=== PATIENT | male | born 1985 | race Caucasian/White ===

== ENCOUNTER 2018-05-28 08:06 | Emergency (ER) | payer MEDICAID ==
[~2018-05-28] VITALS: Ht 177.8 cm; Wt 82.0 kg
[2018-05-28] MEDS ORDERED: SODIUM CHLORIDE 0.9% 1,000 ML IV ONE (09:30)
[2018-05-28 10:00] LABS: BASOPHILS % 0.5 % (0.0-2.0); EOSINOPHILS % 0.1 % (0.0-5.0); HEMATOCRIT. 40.7 % (42.0-52.0); LYMPHOCYTES % 22.4 % (20.0-50.0); MEAN CORPUSCULAR HEMOGLOBIN 30.4 pg (28.0-32.0); MEAN PLATELET VOLUME 7.1 fl (7.4-10.4); MONOCYTES % 7.6 % (2.0-8.0); NEUTROPHILS % 69.4 % (40.0-76.0); PLATELET 326 x1000/uL (130-400); RED BLOOD CELL COUNT 4.62 mill/uL (4.7-6.1); RED CELL DISTRIBUTION WIDTH 14.6 % (11.6-14.6)
[2018-05-28 10:06] LABS: CHLORIDE 102 mEq/L (98-107)
[2018-05-28 10:11] LABS: *BENZODIAZEPINES SCREEN URINE NEGATIVE (NEGATIVE); *COCAINE SCREEN URINE NEGATIVE (NEGATIVE)
[2018-05-28 10:12] LABS: *AMPHETAMINES SCREEN URINE NEGATIVE (NEGATIVE); *BARBITURATES SCREEN URINE NEGATIVE (NEGATIVE); CANNABINOID URINE SCREEN NEGATIVE (NEGATIVE); METHADONE URINE SCREEN NEGATIVE (NEGATIVE); OPIATES URINE SCREEN NEGATIVE (NEGATIVE); PHENCYCLIDINE URINE SCREEN NEGATIVE (NEGATIVE)
[2018-05-28 10:13] LABS: ETHANOL BLOOD < 10 mg/dL
[2018-05-28 10:21] LABS: CLARITY URINE CLEAR (CLEAR); COLOR URINE YELLOW (YELLOW); KETONES URINE NEGATIVE (NEGATIVE); LEUKOCYTE ESTERASE URINE NEGATIVE (NEGATIVE); NITRITE URINE NEGATIVE (NEGATIVE); OCCULT BLOOD URINE NEGATIVE (NEGATIVE); PH URINE 6.5 (4.5-8.0); PROTEIN URINE NEGATIVE (NEGATIVE); SPECIFIC GRAVITY URINE 1.002 (1.005-1.030); UROBILINOGEN URINE 0.2 E.U./dL (0.2-1.0)
[2018-05-28 13:15] VITALS: BP 130/78
== END 2018-05-28 13:36 | disposition home or self-care (01) ==
LOC: ER 08:06
DX: R00.2 Palpitations (principal); F20.9 Schizophrenia, unspecified
CPT/HCPCS: 36415; 71045; 80053; 80305; 81003; 84484; 85025; 93005; 99285; G0482; J7030; Z7610

== ENCOUNTER 2022-07-18 18:59 | Inpatient (IN) | payer OTHER ==
[~2022-07-18] VITALS: Ht 185.4 cm; Wt 91.6 kg
[~2022-07-18 18:59] MED LIST: METF-415 PO; ONDA4TAB5 PO
[2022-07-19] MEDS ORDERED: HYDROXYZINE 25MG TABLET PO ONE (03:45)
[2022-07-19] MEDS ORDERED: HYDROXYZINE 25MG TABLET PO NR (04:00)
[2022-07-19] MEDS ORDERED: SODIUM CHLORIDE 0.9% 1,000 ML IV ONE (06:45)
[2022-07-19 07:03] LABS: *AMPHETAMINES SCREEN URINE NEGATIVE (NEGATIVE); *BARBITURATES SCREEN URINE NEGATIVE (NEGATIVE); *BENZODIAZEPINES SCREEN URINE NEGATIVE (NEGATIVE); *COCAINE SCREEN URINE NEGATIVE (NEGATIVE); CANNABINOID URINE SCREEN NEGATIVE (NEGATIVE); METHADONE URINE SCREEN NEGATIVE (NEGATIVE); OPIATES URINE SCREEN NEGATIVE (NEGATIVE); PHENCYCLIDINE URINE SCREEN NEGATIVE (NEGATIVE)
[2022-07-19 08:17] LABS: BASOPHILS % 1.2 % (0.0-2.0); EOSINOPHILS % 0.3 % (0.0-5.0); HEMATOCRIT. 38.1 % (42.0-52.0); MEAN CORPUSCULAR HEMOGLOBIN 22.5 pg (28.0-32.0); MEAN CORPUSCULAR VOLUME 71.6 fL (80.0-94.0); MONOCYTES % 5.6 % (2.0-8.0); NEUTROPHILS % 57.9 % (40.0-76.0); PLATELET 520 x1000/uL (130-400); RED BLOOD CELL COUNT 5.32 mill/uL (4.7-6.1); RED CELL DISTRIBUTION WIDTH 19.7 % (11.6-14.6)
[2022-07-19 08:20] LABS: CHLORIDE 107 mEq/L (98-107)
[2022-07-19] MEDS ORDERED: ENOXAPARIN 80MG/0.8ML SYR SUBCUT ONE (11:00)
[2022-07-19] MEDS ORDERED: IOHEXOL-350 100 ML BOTTLE ONE (11:11)
[2022-07-19] MEDS ORDERED: ENOXAPARIN 80MG/0.8ML SYR SUBCUT NR (11:45)
[2022-07-19] MEDS ORDERED: ONDANSETRON HCL 4MG/2ML INJ IV PRN (14:00)
[2022-07-19] MEDS ORDERED: DIPHENHYDRAMINE 50MG/ML VIAL IV PRN (14:00)
[2022-07-19] MEDS ORDERED: IPRATROPIUM/ALBUTEROL 0.5-3(2.5)MG/3ML NEB HHN PRN (14:00)
[2022-07-19] MEDS ORDERED: CLONIDINE 0.1MG TABLET PO PRN (14:00)
[2022-07-19] MEDS: ENOXAPARIN 100MG/ML SYR SUBCUT SCH (21:37)
[2022-07-20] VITALS (7 sets, daily range): BP systolic 122–142; BP diastolic 81–99
[2022-07-20] MEDS: ACETAMINOPHEN 325MG TABLET PO PRN ×2 (03:05→22:12)
[2022-07-20] MEDS ORDERED: QUET25TA MT (04:41)
[2022-07-20 08:15] LABS: BASOPHILS % 1.2 % (0.0-2.0); EOSINOPHILS % 0.3 % (0.0-5.0); HEMATOCRIT. 35.5 % (42.0-52.0); HEMOGLOBIN. 11.3 g/dL (14.0-18.0); INR 1.1; LYMPHOCYTES % 33.8 % (20.0-50.0); MEAN CORPUSCULAR HEMOGLOBIN 22.7 pg (28.0-32.0); MEAN CORPUSCULAR VOLUME 71.4 fL (80.0-94.0); MEAN PLATELET VOLUME 7.6 fl (7.4-10.4); MONOCYTES % 7.2 % (2.0-8.0); NEUTROPHILS % 57.5 % (40.0-76.0); PLATELET 463 x1000/uL (130-400); PROTHROMBIN TIME 12.2 sec (9.6-11.0); RED BLOOD CELL COUNT 4.97 mill/uL (4.7-6.1); RED CELL DISTRIBUTION WIDTH 19.8 % (11.6-14.6)
[2022-07-20 08:49] LABS: CHLORIDE 103 mEq/L (98-107)
[2022-07-20] MEDS: ENOXAPARIN 100MG/ML SYR SUBCUT SCH ×2 (09:28→22:10)
[2022-07-20] MEDS ORDERED: INFLUENZA VACCINE 05/PF 0.5 ML SYRINGE IM ONE (15:00)
[2022-07-21 03:05] VITALS: BP 134/86
[2022-07-21 07:30] LABS: BASOPHILS % 1.3 % (0.0-2.0); EOSINOPHILS % 0.9 % (0.0-5.0); HEMATOCRIT. 36.7 % (42.0-52.0); HEMOGLOBIN. 11.7 g/dL (14.0-18.0); LYMPHOCYTES % 40.8 % (20.0-50.0); MEAN CORPUSCULAR HEMOGLOBIN 22.8 pg (28.0-32.0); MEAN CORPUSCULAR VOLUME 71.8 fL (80.0-94.0); MEAN PLATELET VOLUME 7.5 fl (7.4-10.4); MONOCYTES % 8.4 % (2.0-8.0); NEUTROPHILS % 48.6 % (40.0-76.0); PLATELET 483 x1000/uL (130-400); RED BLOOD CELL COUNT 5.12 mill/uL (4.7-6.1); RED CELL DISTRIBUTION WIDTH 19.5 % (11.6-14.6)
[2022-07-21 08:00] VITALS: BP 127/84
[2022-07-21] MEDS: ACETAMINOPHEN 325MG TABLET PO PRN (08:34)
[2022-07-21] MEDS: ENOXAPARIN 100MG/ML SYR SUBCUT SCH (08:35)
[2022-07-21 10:49] LABS: CHLORIDE 103 mEq/L (98-107)
[2022-07-21 12:00] VITALS: BP 142/91
[2022-07-21] MEDS ORDERED: APIX5TAB MT (13:30)
[2022-07-21 15:49] VITALS: BP 144/92
[2022-07-21 15:53] VITALS: BP 144/92
[2022-07-21] MEDS ORDERED: QUETIAPINE FUMARATE 25MG TABLET PO SCH (21:00)
== END 2022-07-21 16:32 | disposition home or self-care (01) | DRG 134 ==
LOC: ER 19:10 → 7EST 07-19 12:39 → EDBEDREQTM 07-19 12:49 → EDBEDREQ 07-19 12:49 → ENRESERV 07-19 22:11
PROVIDERS: ADMIT Internal Medicine; ATTEND Internal Medicine
DX: I26.99 Other pulmonary embolism without acute cor pulmonale (principal); J96.00 Acute respiratory failure, unspecified whether with hypoxia or hypercapnia; I21.4 Non-ST elevation (NSTEMI) myocardial infarction; Z20.822 Contact with and (suspected) exposure to COVID-19; E11.9 Type 2 diabetes mellitus without complications; F20.9 Schizophrenia, unspecified; I10 Essential (primary) hypertension; E78.5 Hyperlipidemia, unspecified; Z79.899 Other long term (current) drug therapy
CPT/HCPCS: 36415; 71045; 71275; 80048; 80053; 80305; 82962; 84484; 85025; 85379; 87426; 90686; 93306; 93970; 99291; C9803; J1650; J7030; Q9967